=== PATIENT | female | born 1960 | race African-American/Black ===

== ENCOUNTER 2022-08-30 11:59 | Emergency (ER) | payer SELFPAY ==
[2022-08-30 12:00] VITALS: BP 121/82; PULSE 70; RESP 18; TEMP 36.9; O2SAT 100
--- NOTE | 2022-08-30 14:24 | W.ED.GENAD ---
Discharge Plan Disposition Patient Disposition: Home Discharge Details Clinical Impression: Avulsion of fingertip Primary Care Provider: None,None ED Provider: Surinder Muller Home Meds and New Rx's Prescriptions: No Action No Known Home Meds Discharge Instructions Instructions: Skin Adhesive Care (ED) Additional Instructions: Please monitor wound for any signs of infection and return immediately if these occur. Otherwise keep wound clean and dry but you may perform your work duties as tolerated by pain and discomfort. Follow-up as needed for reassessment if not fully improving. Referrals: Primary Care Provider [Outside] Medical Decision Making Patient presenting to the emergency department for chief complaint of left ring finger injury. Patient states that yesterday she was cutting a bagel and accidentally cut off the tip of her left ring finger. 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 Patient does states she is up-to-date on tetanus and denies any other injury or trauma. Physical exam shows acute fingertip avulsion of the left distal ring finger. No other injury or trauma is noted. Wound was cleansed appropriately and skin adhesive was placed over the avulsion which patient tolerated well. Patient encouraged to monitor for any signs of infection return immediately if these occur otherwise follow-up as needed. After discussion of diagnosis and plan of care patient has no further needs, questions, or concerns and states clear understanding to return to the emergency department for any worsening symptoms. This documentation was generated using [employer] dictation system, please disregard any oddities of phrase or misspellings. HPI General Mode of arrival: ambulatory. Date/Time Provider Initiated Documentation: 08/30/22 14:24. Limitations to Documentation: no limitations. Information obtained by: patient and RN notes reviewed. History of Present Illness 62 year old F presents to the emergency department with the chief complaint of Fingertip injury-left ring, described as moderate and severe, Quality is described as sharp, and is localized to the left and upper extremity. Patient reports no radiation. Patient started experiencing this day(s) (1) and it has been constant. No relieving factors improve symptom(s), No exacerbating factors reported . Patient notes no other symptoms.. Patient did receive the following treatments prior to arrival, none Related Data Home Medications Medication Instructions Recorded Confirmed Unknown [No Known Home Meds] 08/30/22 08/30/22 Allergies Allergy/AdvReac Type Severity Reaction Status Date / Time No Known Allergies Allergy Unverified 08/30/22 12:07 General Stated Complaint: Laceration RACHID: 4 Review of Systems Narrative: 6 systems reviewed and unremarkable except what is marked below. Integumentary/Breasts Skin/Breast: Reports as per HPI PFSH All Active Problems (Updated 08/30/22 @ 14:30 by Surinder Muller NP) Avulsion of fingertip (Acute) Social History Smoking/Tobacco Use Status: Never Smoking risk assessment performed?: Yes Alcohol Intake: never Drug use: Never Substance use type: does not use Do you feel safe at home: Yes Do you feel safe in your relationship?: Yes Exam Const General: cooperative, no acute distress and not ill appearing Orientation: alert, awake and oriented x3 HENMT Mouth: moist mucous membranes Resp Effort & Inspection: normal respiratory effort, able to speak in complete sentences and no respiratory distress Neuro General: patient alert, patient awake, patient oriented x3, moves all extremities and no focal motor deficits Extrem General: normal exam except as noted Left upper extremity: hand Details: laceration (Ring finger tip avulsion) Course Vital Signs Vital signs: Vital Signs Temperature 36.9 C 08/30/22 12:00 Pulse 70 08/30/22 12:00 Respiratory Rate 18 08/30/22 12:00 Blood Pressure 121/82 08/30/22 12:00 Pulse Oximetry 100 08/30/22 12:00 Temperature 36.9 C 08/30/22 12:00 Temperature Source Temporal Artery Scan 08/30/22 12:00 Pulse 70 08/30/22 12:00 Respiratory Rate 18 08/30/22 12:00 Respiratory Effort Normal 08/30/22 12:04 Blood Pressure 121/82 08/30/22 12:00 Blood Pressure Position Sitting 08/30/22 12:00 Pulse Oximetry 100 08/30/22 12:00 Oxygen Delivery Method Room Air 08/30/22 12:00 Oxygen Flow Rate 0 08/30/22 12:00 Pain Level 10 08/30/22 12:00
== END 2022-08-30 14:32 | disposition home or self-care (01) ==
PROVIDERS: Emergency Provider Nurse Practitioner Family
DX: S61.215A Laceration without foreign body of left ring finger without damage to nail, initial encounter (principal); W26.0XXA Contact with knife, initial encounter
CPT/HCPCS: 99282; 99283